=== PATIENT | female | born 1950 | race Caucasian/White ===

== ENCOUNTER 2020-11-25 06:52 | Outpatient (NON) | payer OTHER, SELFPAY ==
[2020-11-25 19:18] LABS: SARS-CoV-2 RNA PCR Negative
== END 2020-11-25 06:53 ==
PROVIDERS: PCP Nurse Practitioner Adult Health; Visit Provider Nurse Practitioner Adult Health
DX: Z20.822 Contact with and (suspected) exposure to COVID-19 (principal); R09.81 Nasal congestion
CPT/HCPCS: C9803; U0003; U0005

== ENCOUNTER → 2021-07-21 10:34 | Outpatient (CLI) | payer OTHER, SELFPAY ==
--- NOTE | ~2021-07-21 | XR_ITS ---
EXAMINATION: XR abdomen/kub 1V INDICATION: Right lower quadrant pain TECHNIQUE: Supine views of the abdomen were obtained on 2 radiographs. COMPARISON: None FINDINGS: The bowel gas pattern is normal. There is moderate osteoarthritis of the hips. Phleboliths are noted in the pelvis. IMPRESSION: 1. No radiographic correlate for the patient's symptoms. Reviewed, dictated and finalized at location A.
== END ==
PROVIDERS: PCP Family Medicine; Visit Provider Family Medicine
DX: R10.31 Right lower quadrant pain (principal)
CPT/HCPCS: 74018

== ENCOUNTER → 2021-10-13 09:02 | Outpatient (REF) | payer OTHER, SELFPAY | LOC: ANHLAB 09:02 | PROVIDERS: PCP Family Medicine; Visit Provider Nurse Practitioner | DX: L72.0 Epidermal cyst (principal) | CPT/HCPCS: 88304 ==

== ENCOUNTER 2025-03-15 00:40 | Day surgery (SDC) | payer OTHER, SELFPAY ==
[2025-03-11 11:37] VITALS: BMI 32.8
--- OUTSIDE RECORDS SUMMARY | 2025-03-15 00:48 | XMS_ITS | CONTINUITY OF CARE DOCUMENT ---
Author Name valente victor Address Unknown Organization [facility] Address [address] [place] [address] [address] [place] [address] Phone [phone] Care Team Providers Care Grinder Carbon Plant Name Role Phone José Manuel Malone MD Unavailable [phone] BRIANNA RAMIREZ MD Unavailable BRIANNA RAMIREZ MD Unavailable [phone] INSURANCE PROVIDERS Payer name Policy type / Coverage type [place] [employer] party ID [facility] [id number]
--- OUTSIDE RECORDS SUMMARY | 2025-03-15 00:49 | XMS_ITS | Encounter Summary ---
Author Organization [facility] Facility Care Team Providers Care Dressed Poultry Grader Name Role Phone Marti Brown NP Primary Care Provider [phone] Johnathan Whitman MD Primary Care Provider Encounter Details Date Type Department Care Team (Latest Contact Info) Description 02/17/2017 Orders Only [facility]INCON[facility] ProviderFelicia MD [address] [place] [id number] Social History Tobacco Use Types Packs/Day Years Used Date Smoking Tobacco: Never Assessed Comments Unknown Sex and Gender Information Value Date Recorded Sex Assigned at Not on file 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 Historical Provider Final Res ult documented in this encounter Visit Diagnoses Not on filedocumented in this encounter Care Teams Dressed Poultry Grader Relationship Specialty Start Date End Date Marti Brown NP PCP - General Nurse Practitioner 11/22/19 11/30/22 Johnathan Whitman MD [address] [place] [id number] PCP - General Family Medicine 12/01/22 documented as of this encounter
--- OUTSIDE RECORDS SUMMARY | 2025-03-15 00:49 | XMS_ITS | Patient Health Record ---
Author Organization [facility] Address [address] [place], [place] [id number] Care Team Providers Care Sap Basis Architect Name Role Phone TOYA WATTS Unavailable [phone] Johnathan Whitman Unavailable Unavailable Allergies Allergen (clinical drug ingredient) Drug/Non Drug Allergy documented on EMR Reaction Allergy Type Onset Date Status Penicillin Unknown Drug Allergy Active Reason For Referral No Information Medications Medication SIG (Take, Route, Frequency, Duration) Notes Start Date End Date Status B12 5000 MCG as directed Sublingual Active Clotrimazole 1 % 1 application Externally Twice a day Active Vitamin D3 2400 UNIT/ML as directed Active metFORMIN HCl ER 500 MG 1 tablet with ev ening meal Orally Once a day Active Chlorthalidone 25 MG 1 tablet in the morning with food Orally Active Levothyroxine Sodium 75 MCG 1 tablet in the morning on an empty stomach Orally Once a day Active Atorvastatin Calcium 40 MG 1 tablet Orally Once a day Active Clotrimazole 1 % 1 application Externally once a day for 30 days one bottle Active Amlodipine & Diet Manage Prod Active Glucosamine 500 MG 1 capsule with meals Orally Three times a day Active Janette Active Vital Signs Height-cm 160.02 cm 02/18/2025 Weight-kg 77.11 kg 02/18/2025 Height 63 in 02/18/2025 Weight 170 lbs 02/18/2025 BMI 30.11 kg/m2 02/18/2025 Encounters Encounter Location Date Provider Diagnosis [facility] [address] [place], [place] [id number] 05/21/2024 TOYA SNOOK Tinea unguium B35.1 ; Pain in right toe(s) M79.674 and Pain in left toe(s) M79.675 [facility] [place] [address] [place] [id number] 08/20/2024 TOYA SNOOK Tinea unguium B35.1 ; Pain in right toe(s) M79.674 and Pain in left toe(s) M79.675 [facility] [place] [address] [place] [id number] 02/18/2025 TOYA SNOOK Tinea unguium B35.1 ; Pain in right toe(s) M79.674 ; Pain in left toe(s) M79.675 and Intermittent claudication of both lower extremities due to atherosclerosis I70.213 [facility] [place] [address] [place] [id number] 11/19/2024 TOYA SNOOK Tinea unguium B35.1 ; Pain in right toe(s) M79.674 and Pain in left toe(s) M79.675 Assessments Encounter Date Diagnosis (ICD Code) Assessment Notes Treatment Notes Treatment Clinical Notes Section Notes 05/21/2024 Tinea unguium (ICD-10 - B35.1) FUNGAL TOENAILS: Discussed various treatment options for fungal toenails including debridement, topical antifungals, oral antifungals, toenail avulsion, or toenail matrixectomy. 05/21/2024 Pain in right toe(s) (ICD-10 - M79.674) 08/20/2024 Tinea unguium (ICD-10 - B35.1) FUNGAL TOENAILS: Discussed various treatment options for fungal toenails including debridement, topical antifungals, oral antifungals, toenail avulsion, or toenail matrixectomy. Fungal Toenails, Continue Treatment: The patient will continue using the topical antifungal medication. I explained that it can take 9-12 months for a toenail to grow out and notice change. 08/20/2024 Pain in right toe(s) (ICD-10 - M79.674) 02/18/2025 Tinea unguium (ICD-10 - B35.1) FUNGAL TOENAILS: Discussed various treatment options for fungal toenails including debridement, topical antifungals, oral antifungals, toenail avulsion, or toenail matrixectomy. NAIL DEBRIDEMENT: Nails 1-5 Bilateral were debrided extensively with nail nippers and emery board, reducing length and girth to pink healthy tissue with any subungual debris and necrotic tissue removed 02/18/2025 Pain in right toe(s) (ICD-10 - M79.674) 11/19/2024 Tinea unguium (ICD-10 - B35.1) FUNGAL TOENAILS: Discussed various treatment options for fungal toenails including debridement, topical antifungals, oral antifungals, toenail avulsion, or toenail matrixectomy. Fungal Toenails, Continue Treatment: The patient will continue using the topical antifungal medication. I explained that it can take 9-12 months for a toenail to grow out and notice change. 11/19/2024 Pain in right toe(s) (ICD-10 - M79.674) 11/19/2024 Pain in left toe(s) (ICD-10 - M79.675) 02/18/2025 Pain in left toe(s) (ICD-10 - M79.675) 08/20/2024 Pain in left toe(s) (ICD-10 - M79.675) 05/21/2024 Pain in left toe(s) (ICD-10 - M79.675) 02/18/2025 Intermittent claudication of both lower extremities due to atherosclerosis (ICD-10 - I70.213) Plan Of Treatment Next Appt Details Provider Name:TOYA STEFANIE, 10:50:00 AM, [address], [place], [place], [id number], Insurance Providers Payer Name Payer Address Payer Phone Subscriber Number Group Number Insured Name Patient Relationship to Insured Coverage Start Date Coverage End Date [employer] [address] [address] [place], [place] [id number] Mayelin Walsh Self - patient is the insured Medical (General) History Medical History History ICD Code Arthritis Thyroid Disease Diabetic high blood pressure
--- OUTSIDE RECORDS SUMMARY | 2025-03-15 00:49 | XMS_ITS | Referral Summary ---
Author Organization [facility] Address [address] [place] [address] Care Team Providers Care Transport Corps Officer Name Role Phone Johnathan Whitman MD Primary Care Provider Encounters Date Type Department Care Team Description 02/19/2025 Telephone [facility] Surgery [address] [facility] [address] [place] [address] Radha Purcell CMA from Last 3 Months Allergies Active Allergy Reactions Criticality Noted Date Comments Penicillins Other (See comments) Low 12/12/2019 PASSED OUT Sulfa (Sulfonamide Antibiotics) Unknown 12/12/2019 Medications atorvastatin (LIPITOR) 40 mg tabletIndicatio ns:hyperlipidem ia Take 1 tablet (40 mg total) by mouth nightly 0 Active levothyroxine (SYNTHROID) 75 mcg tabletIndicatio ns:hypothyroidi sm Take 1 tablet (75 mcg total) by mouth every morning Active metFORMIN XR (GLUCOPHAGE XR) 500 mg 24 hr tabletIndicatio ns:type 2 diabetes mellitus Take 1 tablet (500 mg total) by mouth nightly 0 Active fexofenadine (ALVINO) 180 mg tabletIndicatio ns:Seasonal Allergic Rhinitis Take 1 tablet (180 mg total) by mouth daily as needed Active UNABLE TO FINDIndications :preventive Glucosamine chrondroitin Tab 1500-1200mg daily Am 1 tab Active clotrimazole-be tamethasone (LOTRISONE) cream clotrimazole-bet amethasone 1 %-0.05 % topical cream APRIL AA TID Active Active Problems Problem Noted Date Diagnosed Date History of breast cancer 02/02/2021 Acquired absence of left breast 06/10/2020 Status post left mastectomy 05/06/2020 Malignant neoplasm of upper- outer quadrant of left breast in female, estrogen receptor negative 12/24/2019 Abnormal findings on diagnostic imaging of gordon t 12/12/2019 Social History Tobacco Use Types Packs/Day Years Used Date Smoking Tobacco: Never Smokeless Tobacco: Never Tobacco Cessation:Counseling Given: Not Answered Alcohol Use Standard Drinks/Week Comments Never 0 (1 standard drink = 0.6 oz pur e alcohol) AUDIT-C Answer Date Recorded Frequency of Alcohol Consumption Never 12/12/2019 Average Number of Drinks Not on file 020 Frequency of Binge Drinking Not on file 11/24 Comments No Sex and Gender Information Value Date Recorded Sex Assigned at Not on file 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 Gender Identity Not on file Sexual Orientation Straight 05/05/2020 10 :31 AM CDT Last Filed Vital Signs Vital Sign Reading Time Taken Comments Blood Pressure 145/72 05/06/2020 9:39 AM CDT RECHECKED R 183/75 Pulse 73 05/06/2020 9:39 AM CDT Temperature 37.1 C (98.8 F) 05/06/2020 9:39 AM CDT Respiratory Rate 18 05/06/2020 9:39 AM CDT Oxygen Saturation 98% 05/06/2020 9:3 9 AM CDT Inhaled Oxygen Concentration - - Weight 86.2 kg (190 lb 0.6 oz) 05/07/2024 9:16 AM CDT Height 160 cm (5' 2.99) 05/07/2024 9:1 6 AM CDT Body Mass Index 33.67 05/07/2024 9:16 AM CDT Plan of Treatment Not on file Procedures Procedure Name Priority Date/Time Associated Diagnosis Comments SCREENING MAMMOGRAM RIGHT W JUNG UNILATERAL ONLY Schedule Routine, Read Routine (OP Routine) 05/07/2024 10:02 AM CDT Acquired absence of left breast from Last 3 Months or Most Recently Relevant to Health Maintenance Results * Screening Mammogram Right W Jung Unilateral Only (05/07/2024 10:02 AM CDT) Anatomical Region Laterality Modality Breast Right Mammography Narrative 05/08/2024 3:19 PM CDT Mammogram Technique: Right Breast Digital Breast Tomosynthesis, Unilateral C-view 2D Screening mammogram. Views obtained: . Computer Aided Detection was performed. Mammogram Findings: The present examination has been compared to prior imaging studies performed at [facility] on 04/17/2004, 02/02/2021 and 12/09/2022. There are scattered areas of fibroglandular density. There is no suspicious abnormality in the right breast. Patient status post contralateral mastectomy for personal history of breast cancer. Impression: There is no mammographic evidence of malignancy. Annual screening mammography is recommended. OVERALL FINAL ASSESSMENT: BI-RADS CATEGORY 1: Negative. Procedure Note Lilibeth Albrecht MD - 05/08/2024 Mammogram Technique: Right Breast Digital Breast Tomosynthesis, Unilateral C-view 2DScreening mammogram. Views obtained: . Computer Aided Detection was performed. Mammogram Findings: The present examination has been compared to prior imaging studies performed at [facility] on 04/17/2004, 02/02/2021 and 12/09/2022. There are scattered areas of fibroglandular density. There is no suspicious abnormality in the right breast. Patient status post contralateral mastectomy for personal history ofbreast cancer. Impression: There is no mammographic evidence of malignancy. Annual screening mammography is recommended. OVERALL FINAL ASSESSMENT: BI-RADS CATEGORY 1: Negative. Susan Hunt NP IM MAMMO PROCEDURES Final Result from Last 3 Months or Most Recently Relevant to Health Maintenance Insurance [facility] CHOICE PLUS MEDICARE [facility] MEDICARE [facility] [place] [address] MEDICARE Advance Directives For more information, please contact: [phone] * Full Code (Latest Code Status on File) Date Activated Date Inactivated Comments 01/24/2020 3:20 PM 01/25/2020 6:06 PM Care Teams Transport Corps Officer Relationship Specialty Start Date End Date Johnathan Whitman MD [address] [facility] [address] [place] [address] PCP - General Family Medicine 12/01/22
--- OUTSIDE RECORDS SUMMARY | 2025-03-15 00:49 | XMS_ITS | Clinical Summary ---
Author Organization [facility] Address [address] [place] [address] Care Team Providers Care Dentist Attendant Name Role Phone Johnathan Whitman MD Primary Care Provider Allergies Active Allergy Reactions Criticality Noted Date [...] on diagnostic imaging of gordon t 12/12/2019 Encounters Date Type Department Care Team Description 02/19/2025 Telephone [facility] Surgery [address] [place] [address] Radha Purcell CMA from Last 3 Months Surgical History Surgery Date Site/Laterality Comments BREAST BIOPSY 12/13/2019 Left BREAST BIOPSY 12/28/2019 Left COLONOSCOPY Medical History Medical History Date Comments Depression Osteoarthritis Hypertension Arthritis Sleep apnea Diabetes (HCC) Thyroid disorder Family History Medical History Relation Name Comments Diabetes Brother No Known Problems Mother Diabetes Sister Anesthesia problems Neg Hx Relation Name Status Comments Brother Mother Sister Social History Tobacco Use Types Packs/Day Years [...] on file 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 Gender Identity Not on file Sexual Orientation Straight 05/05/2020 10 :31 AM CDT Obstetrics History Last Filed Vital Signs Vital Sign Reading [...] 05/07/2024 9:16 AM CDT Plan of Treatment Health Maintenance Due Date Last Done Comments Colon Cancer Screening-Colonoscopy 1950 Depression Screening 1950 Hepatitis C Screening 1950 Osteoporosis Screening-Bone Density Scan 1950 Hepatitis B Screening 1969 Well Visit 65+ 2016 Fall Risk Assessment 01/24/2021 01/25/2020 Pneumococcal vaccine 65+ (3 of 3 - PCV20 or PCV21) 11/26/2021 11/26/2016, 08/29/2015, 07/23/2014 DTaP/Tdap/Td Vaccine (4 - Td or Tdap) 11/23/2022 11/23/2012, 11/10/2012, 12/01/2011 Breast Cancer Screening-Mammogram 05/07/2025 05/07/2024, 12/09/2022, 02/02/2021, Additional history exists Influenza Vaccine (Season Ended) 2025 06/27/2019, 07/04/2018, 08/31/2017, Additional history exists Zoster Vaccine Completed 11/09/2018, 06/24, 12/01/2011 Procedures Procedure Name Priority Date/Time Associated Diagnosis [...] compared to prior imaging studies performed at [facility] on 04/17/2004, 02/02/2021 and 12/09/2022. There are [...] compared to prior imaging studies performed at [facility] on 04/17/2004, 02/02/2021 and 12/09/2022. There are scattered areas of fibroglandular density. There is no suspicious abnormality in the right breast. Patient status post contralateral mastectomy for personal history ofbreast cancer. Impression: There is no mammographic evidence of malignancy. Annual screening mammography is recommended. OVERALL FINAL ASSESSMENT: BI-RADS CATEGORY 1: Negative. Susan Hunt NP IMG MAMMO PROCEDURES Final Result from Last 3 Months or Most Recently Relevant to Health Maintenance Insurance [facility] CHOICE PLUS [facility] HMO/PPO Address: [facility] [address] [place] [address] MEDICARE [facility] HMO/PPO Address: [address] [address] [place] [address] [place] [address] MEDICARE [facility] HMO/PPO Address: [address] [place] [address] [place] [address] MEDICARE Advance Directives For more information, please contact: [phone] * Full Code (Latest Code Status on File) Date Activated Date Inactivated Comments 01/24/2020 3:20 PM 01/25/2020 6:06 PM Care Teams Dentist Attendant Relationship Specialty Start Date End Date Johnathan Whitman MD [address] [facility] [address] [place] [address] PCP - General Family Medicine 12/01/22
--- OUTSIDE RECORDS SUMMARY | 2025-03-15 00:49 | XMS_ITS ---
Author Organization [facility] Address [address] [place], [place] [id number] Care Team Providers Care Pantry Goods Worker Name Role Phone TOYA WATTS Unavailable [phone] Johnathan Whitman Unavailable Unavailable Allergies Allergen (clinical drug ingredient) Drug/Non Drug Allergy documented on EMR Reaction Allergy Type Onset Date Status Penicillin Unknown Drug Allergy Active REASON FOR VISIT The patient returns for follow-up of fungal toenails. She has ciclopirox but is having problems with it. The bottle is difficult to open because the medication is sticky. She also has problems takingthe old medication off the toenails Medications Medication SIG (Take, Route, Frequency, Duration) Notes Start Date End Date Status Ciclopirox 8 % 1 application Externally to toenails Once a day for 30 days Remove medication once a week with rubbing alcohol one bottle, 6.6mL or similar 05/21/2024 11/16/2024 Active Clotrimazole 1 % 1 application Externally once a day for 30 days one bottle 08/20/2024 02/16/2025 Active Levothyroxine Sodium 75 MCG 1 tablet in the morning on an empty stomach Orally Once a day Active Atorvastatin Calcium 40 MG 1 tablet Orally Once a day Active Amlodipine & Diet Manage Prod Active B12 5000 MCG as directed Sublingual Active Clotrimazole 1 % 1 application Externally Twice a day Active Vitamin D3 2400 UNIT/ML as directed Active metFORMIN HCl ER 500 MG 1 tablet with evening meal Orally Once a day Active Chlorthalidone 25 MG 1 tablet in the morning with food Orally Active Janette Active Glucosamine 500 MG 1 capsule with meals Orally Three times a day Active Vital Signs Height 63 in 08/20/2024 Weight 170 lbs 08/20/2024 BMI 30.11 kg/m2 08/20/2024 Height-cm 160.02 cm 08/20/2024 Weight-kg 77.11 kg 08/20/2024 Encounters Encounter Location Date Provider Diagnosis [facility] [address] [place], [place] [id number] 08/20/2024 TOYA PELAEZCHRISTINE Tinea unguium B35.1 ; Pain in right toe(s) M79.674 and Pain in left toe(s) M79.675 Assessments Encounter Date Diagnosis (ICD Code) Assessment Notes Treatment Notes Treatment Clinical Notes Section Notes 08/20/2024 Tinea unguium (ICD-10 - B35.1) FUNGAL [...] in right toe(s) (ICD-10 - M79.674) 08/20/2024 Pain in left toe(s) (ICD-10 - M79.675) Plan Of Treatment Medication Medication Name Sig Start Date Stop Date Notes Clotrimazole 1 % 1 application Child Care Nurse ally once a day for 30 days 08/20/2024 02/16/2025 one bottle Treatment Notes Assessment Notes Tinea unguium FUNGAL TOENAILS: Discussed various treatment options for fungal toenails including debridement, topical antifungals, oral antifungals, toenail avulsion, or toenail matrixectomy. Fungal Toenails, Continue Treatment: The patient will continue using the topical antifungal medication. I explained that it can take 9-12 months for a toenail to grow out and notice change. Next Appt Details Follow Up: 3 Months, Reason: Fungal toenail check Provider Name:TOYA WATTS, 10:50:00 AM, [address], [place], [place], [id number], Progress Notes * Delores WELLINGTONOB:1950 (74 yo F)Acc No.[id number]:08/20/2024 Patient: Mayelin HOUSE Provider: Jamar Watts DPM :1950 A ge:74 Y S ex:Female Date:08/20/2024 Address:[address] [place] [address] [address], [id number] Subjective: * Chief Complaints: * 1 . The patient returns for follow-up of fungal toenails. She has ciclopirox but is having problems with it. The bottle is difficult to open because the medication is sticky. She also has problems taking the old medication off the toenails. * HPI: H PI: [facility] fugus. She was recently seen for an absess tooth and was put on clindamycin for it. Pt states that she feels it is improving. , MA: RR. * ROS: G eneral / Constitutional: Patient denies c hills, fever, weight loss. ? M usculoskeletal: Patient denies w eakness, broken foot bone. ? P eripheral Vascular: Patient denies p ain / cramping in legs after exertion, ulceration of feet. S kin: Patient complains of f ungal nails. N eurologic: Patient denies b alance difficulty, confusion, difficulty speaking, dizziness. * Medical History: A rthritis, Thyroid Disease, Diabetic, High blood pressure. * Medications: T robbie Waltera , Taking Glucosamine 500 MG Capsule 1 capsule with meals Orally Three times a day , Taking B12 5000 MCG Tablet Sublingual as directed Sublingual , Taking Vitamin D3 2400 UNIT/ML Liquid as directed , Taking Clotrimazole 1 % Cream 1 application Externally Twice a day , Taking Chlorthalidone 25 MG Tablet 1 tablet in the morning with food Orally , Taking metFORMIN HCl ER 500 MG Tablet Extended Release 24 Hour 1 tablet with evening meal Orally Once a day , Taking Atorvastatin Calcium 40 MG Tablet 1 tablet Orally Once a day , Taking Levothyroxine Sodium 75 MCG Tablet 1 tablet in the morning on an empty stomach Orally Once a day , Taking Amlodipine & Diet Manage Prod , Taking Ciclopirox 8 % Solution 1 application Externally to toenails Once a day Remove medication once a week with rubbing alcohol, stop date 11/16/2024, Notes to Pharmacist: one bottle, 6.6mL or similar, Medication List reviewed and reconciled with the patient * Allergies: P enicillin: Allergy. Objective: * Vitals: W t:170lbs, Wt-k.11 kg, Ht: 63 in, Ht-cm: 160.02 cm, BMI:30.11Index, Body Surface Area: 1.85. * Examination: C onstitutional: Constitutional T he patient is awake, alert, well developed, well groomed and well nourished. D ermatologic: Skin findings: S kin is warm, dry, supple with no breaks in the skin. Nail pathology: N ails 1-5 bilateral are elongated, thick, discolored, and dystrophic with subungual debris. They are painful to palpation. All of the toenails show clearing at their bases. V ascular: Dorsalis pedis pulse: 2 /4, bilateral. Posterior tibial pulse: 2 /4, bilateral. Capillary refill: l ess than 3 seconds. Edema: N o edema, bilateral. N eurologic: Gross sensation G ross sensation is intact to light touch.? M usculoskeletal: Muscle Strength M uscle strength is 5/5 in regards to dorsiflexion, plantarflexion, inversion, and eversion in bilateral lower extremities. ? Assessment: * Assessment: 1. T inea unguium - B35.1 (Primary) 2 . P ain in right toe(s) - M79.674? 3. P ain in left toe(s) - M79.675 Plan: * Treatment: * Follow Up: 3 Months (Reason: Fungal toenail check) * Billing Information: * Visit Code: 97178 Office Visit, Est Pt., Level 3. * Procedure Codes: * Electronic signature of TOYA WATTS DPM on 03/15/2025 at 12:48 AM CDT Sign off status: Pending * Provider: Jamar Watts DPM Date: Generated for Christiana mendez/Bertha/eTransmitting on: 0 03/15/2025 12:48 AM CDT History and Physical Notes * HPI (History of Present Illness) Category Sub-Category Detail Notes Category Not es HPI Follow Up Visit Patient presents for follow up visit for nail fugus. She was recently seen for an absess tooth and was put on clindamycin for it. Pt states that she feels it is improving. , MA: RR Examination Category Sub-Category Detail Notes Category Not es Dermatologic Skin findings: Skin is warm, dr y, supple with no breaks in the skin Nail pathology: Nails 1-5 bilateral are elongated, thick, discolored, and dystrophic with subungual debris. They are painful to palpation. All of the toenails show clearing at their bases Neurologic Gross sensation Gross sensation is intact to light touch Vascular Dorsalis pedis pulse: 2/4, bilateral Edema: No edema, bilateral Capillary refill: less than 3 seconds Posterior tibial pulse: 2/4, bilateral Musculoskeletal Muscle Strength Muscle strength is 5/5 in regards to dorsiflexion, plantarflexion, inversion, and eversion in bilateral lower extremities Constitutional Constitutional The patient is a wake, alert, well developed, well groomed and well nourished
--- OUTSIDE RECORDS SUMMARY | 2025-03-15 00:49 | XMS_ITS ---
Author Organization [facility] Address [address] [place], [place] [id number] Care Team Providers Care Food Runner Name Role Phone TOYA WATTS Unavailable [phone] Johnathan Whitman Unavailable Unavailable Allergies Allergen (clinical drug ingredient) Drug/Non Drug Allergy documented on EMR Reaction Allergy Type Onset Date Status Penicillin Unknown Drug Allergy Active REASON FOR VISIT Patient presents for at-risk foot care . The patient has painful toenails that cause difficulty with ambulation and shoegear. The onset is gradual Medications Medication SIG (Take, Route, Frequency, Duration) Notes Start Date End Date Status Levothyroxine Sodium 75 MCG 1 tablet in the morning on an empty stomach Orally Once a day Active Clotrimazole 1 % 1 application Externally once a day for 30 days one bottle Active Amlodipine & Diet Manage Prod Active Glucosamine 500 MG 1 capsule with meals Orally Three times a day Active Janette Active Clotrimazole 1 % 1 application Externally Twice a day Active Vitamin D3 2400 UNIT/ML as directed Active metFORMIN HCl ER 500 MG 1 tablet with ev ening meal Orally Once a day Active Chlorthalidone 25 MG 1 tablet in the morning with food Orally Active Atorvastatin Calcium 40 MG 1 tablet Orally Once a day Active B12 5000 MCG as directed Sublingual Active Vital Signs Height 63 in 02/18/2025 Weight 170 lbs 02/18/2025 BMI 30.11 kg/m2 02/18/2025 Height-cm 160.02 cm 02/18/2025 Weight-kg 77.11 kg 02/18/2025 Encounters Encounter Location Date Provider Diagnosis [facility] [address] [place], [place] [id number] 02/18/2025 TOYA WATTS Tinea unguium B35.1 ; Pain in right toe(s) M79.674 ; Pain in left toe(s) M79.675 and Intermittent claudication of both lower extremities due to atherosclerosis I70.213 Assessments Encounter Date Diagnosis (ICD Code) Assessment Notes Treatment Notes Treatment Clinical Notes Section Notes 02/18/2025 Tinea unguium (ICD-10 - B35.1) FUNGAL [...] in right toe(s) (ICD-10 - M79.674) 02/18/2025 Pain in left toe(s) (ICD-10 - M79.675) 02/18/2025 Intermittent claudication of both lower extremities due to atherosclerosis (ICD-10 - I70.213) Plan Of Treatment Treatment Notes Assessment Notes Tinea unguium FUNGAL TOENAILS: Discussed various treatment options for fungal toenails including debridement, topical antifungals, oral antifungals, toenail avulsion, or toenail matrixectomy. NAIL DEBRIDEMENT: Nails 1-5 Bilateral were debrided extensively with nail nippers and emery board, reducing length and girth to pink healthy tissue with any subungual debris and necrotic tissue removed Next Appt Details Follow Up: 10-12 Weeks, Reas on: At Risk Foot care, sooner if problems arise Provider Name:TOYA WATTS, 10:50:00 AM, [address], [place], [place], [id number], Progress Notes * Viviana WELLINGTON:1950 (74 yo F)Acc No.[id number]:02/18/2025 Patient: Mayelin HOUSE Provider: Jamar Watts DPM :1950 A ge:74 Y S ex:Female Date:02/18/2025 Address:[facility] [address], [id number] Subjective: * Chief Complaints: * 1 . Patient presents for at-risk foot care . The patient has painful toenails that cause difficulty with ambulation and shoegear. The onset is gradual. * HPI: H PI: Follow Up Visit P kamryn presents for follow-up visit for fungal nail check. Patient has been using topical solution, and she states she has seen a small improvement with this. MA LB. sample. * ROS: G eneral / Constitutional: Patient [...] Thyroid Disease, Diabetic, High blood pressure. * Family History: N o Family History documented.. * Medications: T aking Janette , Taking Glucosamine 500 MG Capsule 1 [...] Amlodipine & Diet Manage Prod , Taking Clotrimazole 1 % Solution 1 application Externally once a day , Notes to Pharmacist: one bottle, Medication List reviewed and reconciled with the patient * Allergies: P enicillin: Allergy. Objective: * Vitals: W t:170lbs, Wt-k.11 kg, Ht: 63 in, Ht-cm: 160.02 cm, BMI:30.11Index, Body Surface Area: 1.85. * Examination: C onstitutional: Constitutional T he patient is awake, alert, well developed, well groomed and well nourished. D ermatologic: Skin findings: S kin is thin, atrophic and lacking pedal hair. Nail pathology: N ails 1, 2, 3, 4, and 5 bilateral are elongated, thick, discolored, and dystrophic with subungual debris. They are painful to palpation. ? V ascular: Dorsalis pedis pulse: 1 /4 b ilateral. Posterior tibial pulse: 0 /4 b ilateral. Capillary refill: g reater than 3 seconds. Edema: N o edema, [...] P ain in left toe(s) - M79.675 4 . I ntermittent claudication of both lower extremities due to atherosclerosis - I70.213 Plan: * Treatment: * Immunizations: Immunization record has been reviewed and updated. * Follow Up: 1 0-12 Weeks (Reason: At Risk Foot care, sooner if problems arise) * Billing Information: * Visit Code: 28439 Office Visit, Est Pt., Level 3. * Procedure Codes: * Electronic signature of TOYA WATTS DPM on 03/15/2025 at 12:49 AM CDT Sign off status: Pending * Provider: Jamar Watts DPM Date: 0 02/18/2025 Generated for Christiana mendez/Bertha/Florence on: 0 03/15/2025 12:49 AM CDT History and Physical Notes * HPI (History of Present Illness) Category Sub-Category Detail Notes Category Not es HPI Follow Up Visit Patient presents for follow-up visit for fungal nail check. Patient has been using topical solution, and she states she has seen a small improvement with this. BETHANIE LB sample Examination Category Sub-Category Detail Notes Category Not es Dermatologic Skin findings: Skin is thin, at rophic and lacking pedal hair Nail pathology: Nails 1, 2, 3, 4, an d 5 bilateral are elongated, thick, discolored, and dystrophic with subungual debris. They are painful to palpation Neurologic Gross sensation Gross sensation is intact to light touch Vascular Dorsalis pedis pulse: 1/4 bilateral Edema: No edema, bilateral Capillary refill: greater than 3 secon ds Posterior tibial pulse: 0/4 bilateral Musculoskeletal Muscle Strength Muscle strength is 5/5 in regards to dorsiflexion, plantarflexion, inversion, and eversion in bilateral lower extremities Constitutional Constitutional The patient is a wake, alert, well developed, well groomed and well nourished
[2025-03-15 08:50] VITALS: BP 140/67; PULSE 84; RESP 16; TEMP 36; O2SAT 98
[2025-03-15 08:58] LABS: Glucose Point of Care 110 mg/dl (65-105)
[2025-03-15] MEDS: LACTATED RINGERS 1,000 ML 150 ML IV CONT (09:02)
--- NOTE | 2025-03-15 09:07 | P.PNAN_ITS ---
Anes - Initial Pre Proc Eval Procedure: Operation Date: 03/15/25 10:00 Proposed Procedures p Colonoscopy - Derrick Avalos MD Date/Time: 03/15/25 09:07 Surgeon: Derrick Avalos MD Pre Op Diagnosis: Other fecal abnormalities Patient Data Age: 74 Gender: F Height: 1.6 m Weight: 82.2 kg Last Vital Signs Temp 36.0 C L 03/15/25 08:50 Pulse 84 03/15/25 08:50 Resp 16 03/15/25 08:50 BP 140/67 03/15/25 08:50 Pulse Ox 98 03/15/25 08:50 O2 Del Method Room Air 03/15/25 08:50 Allergies Allergy/AdvReac Type Severity Reaction Status Date / Time hydrochlorothiazide Allergy Mild Rash Verified 03/15/25 08:46 Penicillins Allergy Mild Unconscious Verified 03/15/25 08:46 Sulfa (Sulfonamide Allergy Hives Verified 03/15/25 08:46 Antibiotics) Home Medications ?Medication ?Instructions ?Recorded ?Confirmed ?Type flash glucose scanning reader #1 ea 08/26/21 11/20/24 Rx (FreeStyle Tiff 14 Day [place]) flash glucose sensor (FreeStyle #1 ea 08/26/21 11/20/24 Rx Tiff 14 Day Sensor kit) cholecalciferol (vitamin D3) 1,250 1,250 mcg PO MONTHLY 10/13/21 03/15/25 History mcg (50,000 unit) capsule semaglutide 0.25 mg or 0.5 mg (2 0.25 mg (0.368 mL) subcut WEEKLY 09/21/23 11/20/24 Rx mg/3 mL) subcutaneous pen injector #3 mL (Ozempic) amlodipine 5 mg-olmesartan 40 mg 1 tablet PO DAILY #90 tabs 04/23/24 03/15/25 Rx tablet trazodone 50 mg tablet 50 mg PO QHS #30 tabs 06/22/24 03/15/25 Rx azelastine 137 mcg (0.1 %) nasal 137 mcg (0.137 mL) intranasal Q12H 08/03/24 03/15/25 Rx spray #30 mL fluticasone propionate 50 1 spray intranasal DAILY #16 grams 08/03/24 03/15/25 Rx mcg/actuation nasal spray,suspension metformin 500 mg tablet,extended 2,000 mg (4 x 500 mg) PO DAILY 09/13/24 03/15/25 Rx release 24 hr #360 tabs chlorthalidone 25 mg tablet See Rx Instructions .Route 10/08/24 03/15/25 Rx .COMPLEX #90 tabs levothyroxine 75 mcg tablet 75 mcg PO DAILY #90 tabs 10/18/24 03/15/25 Rx atorvastatin 40 mg tablet 40 mg PO DAILY #90 tabs 12/10/24 03/15/25 Rx sodium sul 1.479 gram-potas ch See Rx Instructions PO PER PKG DIR 02/21/25 03/15/25 Rx 0.188 gram-magnes sul 0.225 gram #24 tabs tablet (Sutab) clotrimazole 1 % topical solution 1 applic topical DAILY 03/11/25 03/15/25 History cyanocobalamin (vitamin B-12) 1,000 mcg PO DAILY 03/11/25 03/15/25 History 1,000 mcg tablet (Vitamin B-12) fexofenadine 180 mg tablet 180 mg PO DAILY PRN allergy 03/11/25 03/15/25 History (Janette Allergy) symptoms glucosamine-chondroitin 250 mg-200 2 tablet PO DAILY 03/11/25 03/15/25 History mg tablet ondansetron 4 mg disintegrating 4 mg PO Q6H PRN nausea and 03/13/25 Rx tablet vomiting #4 tabs Laboratory Tests 03/15/25 08:56 POC Capillary Glucose 110 H mg/dl (65-105) Patient hx anesthesia problems: none Family hx anesthesia problems: none Results Review: All pre-operative results and documents have been reviewed as part of the pre- operative evaluation. [facility] Past Medical History Medical History Obesity Anxiety Hypothyroidism HLD (hyperlipidemia) HTN (hypertension) Diabetes Surgical History Surgical History History of left mastectomy Family History Family History Sibling Diabetes mellitus Social History Social History Smoking status: Never smoker Second hand tobacco smoke exposure: No Alcohol intake: never Substance use: never Substance use type: does not use Do You Feel Safe in your Home?: Yes Lack of Transportation: No Lack of Food: Never True Current Housing: I Have Housing Concerned About Future Housing: No Difficulty Paying Gas/Electric Bills: No Difficulty Paying for Meds: No Currently Unemployed: YES Education: Don't Know Difficulty w/ Childcare or Family Care: No Living arrangements: with family Occupation/Education: retired Gender identity (if verbalized by the patient): Male Sexual Orientation (if Verbalized by the Patient): Straight or Heterosexual Spiritual care concerns: No Anes - Eval Final PreProcedure Day of Procedure 03/15/25 09:07 Patient weight: obese Heart: regular rate and rhythm Lungs: clear to auscultation Airway: Mallampati scale class III Neurological: alert and oriented Last oral intake: >/= 8 hours ASA classification: III Emergent: no Anesthetic plan: proceed Anesthesia type and monitoring: general GIVS and standard monitoring Results Review: All pre-operative results and documents have been reviewed as part of the pre- operative evaluation. Informed Consent: The patient's anesthetic plan and its attendant risks and benefits were discussed with the patient/family/POA. Questions were solicited and answers pr ovided to the satisfaction of the patient/family/POA.
--- NOTE | 2025-03-15 09:25 | PM.HPGS ---
History of Present Illness History of Present Illness Consent: Risks, benefits, and alternatives have been discussed and questions answered. Patient agrees to proceed with procedure. Chief complaint: Other fecal abnormalities Narrative: Mayelin Walsh is a 74 year old female here for colonoscopy, had + cologuard Review of Systems Review of Systems: All systems reviewed & are unremarkable except as noted in HPI and below PMFSH Past Medical History Medical History (Updated 03/15/25 @ 09:25 by Derrick Avalos MD) Positive colorectal cancer screening using Cologuard test Obesity Anxiety Hypothyroidism HLD (hyperlipidemia) HTN (hypertension) Diabetes Surgical History Surgical History History of left mastectomy Family History Family History Sibling Diabetes mellitus Social History Social History Smoking status: Never smoker Second hand tobacco smoke exposure: No Alcohol intake: never Substance use: never Substance use type: does not use Do You Feel Safe in your Home?: Yes Lack of Transportation: No Lack of Food: Never True Current Housing: I Have Housing Concerned About Future Housing: No Difficulty Paying Gas/Electric Bills: No Difficulty Paying for Meds: No Currently Unemployed: YES Education: Don't Know Difficulty w/ Childcare or Family Care: No Living arrangements: with family Occupation/Education: retired Gender identity (if verbalized by the patient): Male Sexual Orientation (if Verbalized by the Patient): Straight or Heterosexual Spiritual care concerns: No Meds Home Medications and Allergies Home Medications ?Medication ?Instructions ?Recorded ?Confirmed ?Type flash glucose scanning reader #1 ea 08/26/21 11/20/24 Rx (FreeStyle Tiff 14 Day [place]) flash glucose sensor (FreeStyle #1 ea 08/26/21 11/20/24 Rx Tiff 14 Day Sensor kit) cholecalciferol (vitamin D3) 1,250 1,250 mcg PO MONTHLY 10/13/21 03/15/25 History mcg (50,000 unit) capsule semaglutide 0.25 mg or 0.5 mg (2 0.25 mg (0.368 mL) subcut WEEKLY 09/21/23 11/20/24 Rx mg/3 mL) subcutaneous pen injector #3 mL (Ozempic) amlodipine 5 mg-olmesartan 40 mg 1 tablet PO DAILY #90 tabs 04/23/24 03/15/25 Rx tablet trazodone 50 mg tablet 50 mg PO QHS #30 tabs 06/22/24 03/15/25 Rx azelastine 137 mcg (0.1 %) nasal 137 mcg (0.137 mL) intranasal Q12H 08/03/24 03/15/25 Rx spray #30 mL fluticasone propionate 50 1 spray intranasal DAILY #16 grams 08/03/24 03/15/25 Rx mcg/actuation nasal spray,suspension metformin 500 mg tablet,extended 2,000 mg (4 x 500 mg) PO DAILY 09/13/24 03/15/25 Rx release 24 hr #360 tabs chlorthalidone 25 mg tablet See Rx Instructions .Route 10/08/24 03/15/25 Rx .COMPLEX #90 tabs levothyroxine 75 mcg tablet 75 mcg PO DAILY #90 tabs 10/18/24 03/15/25 Rx atorvastatin 40 mg tablet 40 mg PO DAILY #90 tabs 12/10/24 03/15/25 Rx sodium sul 1.479 gram-potas ch See Rx Instructions PO PER PKG DIR 02/21/25 03/15/25 Rx 0.188 gram-magnes sul 0.225 gram #24 tabs tablet (Sutab) clotrimazole 1 % topical solution 1 applic topical DAILY 03/11/25 03/15/25 History cyanocobalamin (vitamin B-12) 1,000 mcg PO DAILY 03/11/25 03/15/25 History 1,000 mcg tablet (Vitamin B-12) fexofenadine 180 mg tablet 180 mg PO DAILY PRN allergy 03/11/25 03/15/25 History (Janette Allergy) symptoms glucosamine-chondroitin 250 mg-200 2 tablet PO DAILY 03/11/25 03/15/25 History mg tablet ondansetron 4 mg disintegrating 4 mg PO Q6H PRN nausea and 03/13/25 Rx tablet vomiting #4 tabs Allergies Allergy/AdvReac Type Severity Reaction Status Date / Time hydrochlorothiazide Allergy Mild Rash Verified 03/15/25 08:46 Penicillins Allergy Mild Unconscious Verified 03/15/25 08:46 Sulfa (Sulfonamide Allergy Hives Verified 03/15/25 08:46 Antibiotics) Vital Signs Vital Signs - 24 hr 03/15/25 08:50 Temperature 96.8 F L Pulse Rate 84 Respiratory Rate 16 Blood Pressure 140/67 Pulse Oximetry 98 Oxygen Delivery Room Air Exam Const: General: comfortable and no acute distress HENMT: Face/Nose/Sinus: Normal nares present Eyes: General: appearance normal, both eyes and all related structures Neck: Neck: no JVD Resp: Auscultation: clear to auscultation bilaterally Cardio: Rate: regular rate Rhythm: regular rhythm GI: Inspection: non-distended GI Palp: Yes Soft to palpation Skin: General skin exam: normal color Neuro: General: gait normal Speech: normal speech Extrem: General: normal to inspection Psych: Mental Status: mental status grossly normal Assessment and Plan Assessment and plan (1) Positive colorectal cancer screening using Cologuard test: Code(s): R19.5 - Other fecal abnormalities Status: Acute Assessment and Plan: colonoscopy
[2025-03-15 09:39] VITALS: BP 100/39; PULSE 63; RESP 20; O2SAT 96
--- NOTE | 2025-03-15 09:39 | S_PTH ---
PATIENT: Mayelin Walsh LOC: [facility]#:[id number] AGE/SX: 74/F ROOM: RE03/15/[address]: Derrick Avalos MD : 1950 BED: DIS: 03/15/2025 SPEC #: [id number] RECD: 03/15/25 10:04 STATUS: VEA WARE #: [id number] JUNG: 03/15/25 09:[address]: Derrick Avalos DEPT: [facility] Surgical RECD BY: Janae Lopez ENTERED: 03/15/25 10:04 SP TYPE: Surgical OTHR DR: Johnathan Whitman MD Tissues: A - Colon Polypectomy Procedures: Hematoxylin and Eosin Stain Gross and Microscopic Level 4
[2025-03-15 09:49] VITALS: BP 113/47; PULSE 70; RESP 18; O2SAT 97
[2025-03-15 09:59] VITALS: BP 126/47; PULSE 68; RESP 18; O2SAT 98
== END 2025-03-15 10:08 | disposition home or self-care (01) ==
PROVIDERS: PCP Family Medicine; Referring Provider Physician Assistant Medical; Visit Provider Internal Medicine Gastroenterology
PROC: 0DJD8ZZ Inspection of Lower Intestinal Tract, Via Natural or Artificial Opening Endoscopic (ICD-10-PCS; CPT 45378; principal; 2025-03-15 10:00)
DX: R19.5 Other fecal abnormalities (principal); D12.2 Benign neoplasm of ascending colon; K63.5 Polyp of colon; K64.8 Other hemorrhoids; E11.9 Type 2 diabetes mellitus without complications; E66.9 Obesity, unspecified; Z68.32 Body mass index [BMI] 32.0-32.9, adult
CPT/HCPCS: 45385; 82948; 88305; J2704; J7120